=== PATIENT | male | born 1970 | race Caucasian/White ===

== ENCOUNTER 2016-05-29 19:10 | Emergency (ER) | payer BC ==
[2016-05-29 20:40] VITALS: BP 163/91
--- NOTE | 2016-05-29 21:29 | UC ---
Rectal Pain HPI - HPI Summary HPI Summary: rectal pain from a hemorrhoid x 4 days, no relief with preparation H. - History Of Current Complaint Chief Complaint: UCGI Stated Complaint: RECTAL COMPLAINT Time Seen by Provider: 05/29/16 21:28 Hx Obtained From: Patient Onset/Duration: Gradual Onset, Lasting Days, Still Present Timing: Constant Severity Initially: Moderate Severity Currently: Severe Pain Intensity: 8 Pain Scale Used: 0-10 Numeric Location Of Pain: Anal Character: Pressure Aggravating Factor(s): Bowel Movement, Sitting Associated Signs And Symptoms: Positive: External Hemorrhoid Related History: Hemorrhoids - Allergies/Home Medications Allergies/Adverse Reactions: Allergies Allergy/AdvReac Type Severity Reaction Status Date / Time Metoclopramide [From Reglan] Allergy Mild very Verified 05/29/16 20:32 agitated Sulfa Antibiotics Allergy Mild very sick Verified 05/29/16 20:32 Home Medications: Home Medications Pioglitazone TAB* [Actos TAB*] 30 mg PO DAILY 05/29/16 [History Confirmed ] clonazePAM TAB(*) [KlonoPIN TAB(*)] 0.5 mg PO TID PRN 05/29/16 [History Confirmed 05/29/16] PMH/Surg Hx/FS Hx/Imm Hx Endocrine History Of: Reports: Diabetes Cardiovascular History Of: Reports: Hypertension Denies: Cardiac Disorders, Pacemaker/ICD Respiratory History Of: Denies: Asthma - Surgical History Surgical History: Yes Surgery Procedure, Year, and Place: appendectomy - Family History Known Family History: Positive: Hypertension - Social History Occupation: Employed Full-time Lives: With Family Alcohol Use: Rare Substance Use Type: None Smoking Status (MU): Former Smoker Type: Cigarettes Amount Used/How Often: 1/2- 1 ppd Have You Smoked in the Last Year: Yes When Did the Patient Quit Smoking/Using Tobacco: NOVEMBER 2014 Household Exposure Type: Cigarettes Review of Systems Constitutional: Negative Skin: Negative Eyes: Negative ENT: Negative Respiratory: Negative Cardiovascular: Negative Gastrointestinal: Other - rectal pain, no bleeding Genitourinary: Negative Motor: Negative Neurovascular: Negative Musculoskeletal: Negative Neurological: Negative Psychological: Negative All Other Systems Reviewed And Are Negative: Yes Physical Exam Triage Information Reviewed: Yes Appearance: Well-Appearing, Well-Nourished, Pain Distress Vital Signs: Initial Vital Signs Temp 97.6 F 05/29/16 20:35 Pulse 118 05/29/16 20:35 Resp 20 05/29/16 20:35 BP 163/91 05/29/16 20:35 Pulse Ox 95 05/29/16 20:35 elevated pulse noted, elevated BP noted Vital Signs Reviewed: Yes Eyes: Positive: Conjunctiva Clear ENT: Positive: Normal ENT inspection Neck: Positive: Supple Respiratory: Positive: Lungs clear, Normal breath sounds, No respiratory distress Cardiovascular: Positive: RRR, No Murmur, Pulses Normal, Brisk Capillary Refill Abdomen Description: Positive: Nontender, No Organomegaly, Soft Bowel Sounds: Positive: Other: - rectal exam with nonthrombosed external hemorrhoid, no fissure or fistula Musculoskeletal: Positive: Strength Intact, ROM Intact Neurological: Positive: Alert, Muscle Tone Normal Psychological Exam: Normal Skin Exam: Normal Rectal Pain Course/Dx - Differential Dx/Diagnosis Differential Diagnosis/HQI/PQRI: Hemorrhoid(s), Perirectal Abscess, Pilonial Cyst, Rectal Fissure Provider Diagnoses: rectal pain from nonthrombosed hemorrhoid Discharge - Discharge Plan Condition: Stable Disposition: HOME Prescriptions: HYDROcodone/ACETAMIN 5-325 MG* [Duff 5-325 TAB*] 1 tab PO Q4H PRN #12 tab MDD 4 PRN Reason: Pain Hydrocortisone SUPP* [Anusol HC Supp*] 25 mg NH BID #12 supp Witch Jackie PAD* [Tucks*] 1 applic TOPICAL QID #1 jar Patient Education Materials: Hemorrhoids (ED) Forms: *Work Release Referrals: Josué Lin NP [Primary Care Provider] - Additional Instructions: Take both the miralax and the senokot (senna) and drink lots of water. Use the Tucks and the Anusol as directed. Be careful because the narcotic is very constipating. Try a donut cushion. Also try sitz baths. If no improvement or worsening return to urgent care, or go to the emergency room.
[2016-05-29] MEDS ORDERED: HYDROcodone/ACETAMIN 5-325 MG* 1 TAB PO ONE (21:49)
== END 2016-05-29 21:57 | disposition home or self-care (01) ==
LOC: UCCORT 19:10
DX: K64.4 Residual hemorrhoidal skin tags (principal); K62.89 Other specified diseases of anus and rectum; Z88.2 Allergy status to sulfonamides; Z88.8 Allergy status to other drugs, medicaments and biological substances; E11.9 Type 2 diabetes mellitus without complications; Z79.84 Long term (current) use of oral hypoglycemic drugs; Z87.891 Personal history of nicotine dependence
CPT/HCPCS: 99212; G0463

== ENCOUNTER 2016-07-16 16:35 | Emergency (ER) | payer BC ==
[2016-07-16 17:05] VITALS: BP 156/83
--- NOTE | 2016-07-16 17:09 | UC ---
Lower Extremity/Ankle HPI - HPI Summary HPI Summary: The patient comes in today for: 1. Right ankle pain: Onset: 5 days ago. Palliative/provocative: Sitting helps. Walking makes it worse. Quality: [place]: Right lateral ankle. Severity: Sittin/10, but with walking 7/10 Time: Comes and goes depending on activity. Associated symptoms: Event: No injury know, but he describes an event 5 days ago, when he was stepping off a stage. He describes himself as "tripping up a little bit." But he did not thing that he sprained his ankle at the time. Previous treatment: Ibuprofen 400 mg twice a day and this did not help. * - History of Current Complaint Stated Complaint: RIGHT ANKLE PAIN Time Seen by Provider: 07/16/16 16:57 Hx Obtained From: Patient - Allergies/Home Medications Allergies/Adverse Reactions: Allergies Allergy/AdvReac Type Severity Reaction Status Date / Time Metoclopramide [From Reglan] Allergy Mild very Verified 07/16/16 17:02 agitated Sulfa Antibiotics Allergy Mild very sick Verified 07/16/16 17:02 Home Medications: Home Medications Sitagliptin (NF) [Januvia (NF)] 1 tab DAILY 07/16/16 [History Confirmed 07/16/16 ] PMH/Surg Hx/FS Hx/Imm Hx Endocrine History Of: Reports: Diabetes, Dyslipidemia Denies: Thyroid Disease, Hyperthyroidism, Hypothyroidism Cardiovascular History Of: Reports: Hypertension Denies: Cardiac Disorders, Pacemaker/ICD, Myocardial Infarction, Congestive Heart Failure, Atrial Fibrillation, Deep Vein Thrombosis, Bleeding Disorders Respiratory History Of: Denies: COPD, Asthma, Bronchitis, Pneumonia, Pulmonary Embolism GI/ History Of: Reports: Kidney Stones Denies: Gastroesophageal Reflux, Ulcer, Gastrointestinal Bleed, Gall Bladder Disease, Diverticulitis, Renal Disease, Urosepsis Neurological History Of: Denies: TIA, CVA, Dementia, Seizures, Migraine Psychological History Of: Reports: Anxiety Denies: Depression, Bipolar Disorder, Schizophrenia, Post Traumatic Stress Disorder Cancer History Of: Denies: Lung Cancer, Colorectal Cancer, Breast Cancer, Prostate Cancer, Cervical Cancer Other History Of: Negative For: HIV, Hepatitis B, Hepatitis C, Anticoagulant Therapy - Surgical History Surgical History: Yes Surgery Procedure, Year, and Place: appendectomy - Family History Known Family History: Positive: Hypertension, Diabetes Negative: Cardiac Disease - Social History Occupation: Employed Full-time Alcohol Use: Rare Substance Use Type: None Smoking Status (MU): Former Smoker Type: Cigarettes Amount Used/How Often: 1/2- 1 ppd Have You Smoked in the Last Year: Yes When Did the Patient Quit Smoking/Using Tobacco: NOVEMBER 2014 Household Exposure Type: Cigarettes Review of Systems Constitutional: Negative Skin: Negative Eyes: Negative ENT: Negative Respiratory: Negative Cardiovascular: Negative Gastrointestinal: Negative Genitourinary: Negative Musculoskeletal: Arthralgia, Myalgia All Other Systems Reviewed And Are Negative: Yes Physical Exam Triage Information Reviewed: Yes Appearance: Well-Appearing, No Pain Distress, Well-Nourished Vital Signs Reviewed: Yes Eyes: Positive: Conjunctiva Clear. Negative: Discharge ENT: Positive: Hearing grossly normal. Negative: Pharyngeal erythema, Nasal congestion, Nasal drainage, TM bulging, TM dull, TM red, Tonsillar swelling, Tonsillar exudate Dental: Negative: Gross Decay/Caries @, Dental Fracture @ Neck: Positive: Supple, Nontender, No Lymphadenopathy. Negative: Nuchal Rigidity Respiratory: Positive: Chest non-tender, No respiratory distress, No accessory muscle use. Negative: Crackles, Wheezing Cardiovascular: Positive: RRR, No Murmur Abdomen Description: Positive: Nontender, No Organomegaly, Soft. Negative: Distended, Guarding Musculoskeletal: Positive: Strength Intact, Other: - Right ankle: NO ecchymosis. No edema. There is tenderness to palpation inferior to the right lateral malleolus. Degroot test was normal as was feeling for a depression in the Achilles tendon with slight dorsiflexion. HE walks with a limp. Neurological: Positive: Alert, Muscle Tone Normal Psychological: Positive: Age Appropriate Behavior, Consolable Skin: Negative: rashes, breakdown Diagnostics - Radiology No standard instances Xray Interpretation: No Acute Changes Radiology Interpretation Completed By: Radiologist - No acute changes--mild osteoarthritis. Lower Extremity Course/Dx - Course Course Of Treatment: Patient was told of his x-ray results and his treatment options. - Differential Dx/Diagnosis Provider Diagnoses: Osteoarthritis of the right ankle. Discharge - Discharge Plan Condition: Stable Disposition: HOME Patient Education Materials: Osteoarthritis (ED) Forms: *Work Release Referrals: Josué Lin NP [Primary Care Provider] - 1 Week (Please see your primary care provider in about a week to see how well you are doing. If you get worse, please be seen sooner.)
--- NOTE | 2016-07-16 17:33 | RAD ---
Indication: RIGHT lateral malleolus pain for one week. Comparison: None. Technique: AP, mortise, and lateral views RIGHT ankle. Report: Negative for fracture, osteochondral lesion, or malalignment. Mild osteophytosis at the talocrural joint as well as the transverse tarsal and intertarsal joints. Small Achilles tendon insertion bone spur. Mild soft tissue swelling most prominent over the lateral malleolus. IMPRESSION: Mild osteoarthritis. Negative for fracture or malalignment.
== END 2016-07-16 17:52 | disposition home or self-care (01) ==
LOC: UCCORT 16:35
DX: M19.071 Primary osteoarthritis, right ankle and foot (principal); Z88.2 Allergy status to sulfonamides; Z88.8 Allergy status to other drugs, medicaments and biological substances; Z87.891 Personal history of nicotine dependence
CPT/HCPCS: 99212; G0463

== ENCOUNTER 2017-05-03 11:45 | Emergency (ER) | payer BC ==
[2017-05-03 12:19] VITALS: BP 130/72
--- NOTE | 2017-05-03 13:12 | UC ---
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 RIGHT eye crusting/discharge since Thursday." Wears glasses, no contacts. no cold sx. eye crusted shut past 2 AMs. no pain, no trauma or FB. no change in vision except mild blurriness. - History of Current Complaint Chief Complaint: UCEye Stated Complaint: RIGHT EYE COMPLAINT Time Seen by Provider: 05/03/17 13:05 - Allergies/Home Medications Allergies/Adverse Reactions: Allergies Allergy/AdvReac Type Severity Reaction Status Date / Time Metoclopramide [From Reglan] Allergy Mild very Verified 05/03/17 12:13 agitated Sulfa Antibiotics Allergy Mild very sick Verified 05/03/17 12:13 Home Medications: Home Medications Omeprazole CAP* [Prilosec CAP* 20 MG] 1 cap DAILY 05/03/17 [History Confirmed ] PMH/Surg Hx/FS Hx/Imm Hx Previously Healthy: Yes Endocrine History: Diabetes, Dyslipidemia Cardiovascular History: Hypertension GI/ History: Gastroesophageal Reflux Other History Of: Negative For: HIV, Hepatitis B, Hepatitis C, Anticoagulant Therapy - Surgical History Surgical History: Yes Surgery Procedure, Year, and Place: appendectomy - Family History Known Family History: Positive: Hypertension, Diabetes Negative: Cardiac Disease - Social History Alcohol Use: Occasionally Substance Use Type: None Smoking Status (MU): Former Smoker Type: Cigarettes Amount Used/How Often: 1/2- 1 ppd Have You Smoked in the Last Year: Yes When Did the Patient Quit Smoking/Using Tobacco: NOVEMBER 2014 Household Exposure Type: Cigarettes - Immunization History Most Recent Influenza Vaccination: 2016 Review of Systems Constitutional: Negative Skin: Negative Eyes: Drainage, Eye Redness ENT: Negative Respiratory: Negative Cardiovascular: Negative Gastrointestinal: Negative Genitourinary: Negative Motor: Negative Neurovascular: Negative Musculoskeletal: Negative Neurological: Negative Psychological: Negative Is Patient Immunocompromised?: No All Other Systems Reviewed And Are Negative: Yes Physical Exam Triage Information Reviewed: Yes Appearance: Well-Appearing, No Pain Distress, Well-Nourished - very pleasant Vital Signs: Initial Vital Signs Temp 97.4 F 05/03/17 12:15 Pulse 82 05/03/17 12:15 Resp 16 05/03/17 12:15 BP 130/72 05/03/17 12:15 Pulse Ox 96 05/03/17 12:15 Vital Signs Reviewed: Yes Eyes: Positive: Conjunctiva Inflamed - mild erythema right, FROM, EOMI. + mild crusted d/c., Discharge ENT Exam: Normal ENT: Positive: Pharynx normal, TMs normal. Negative: Sinus tenderness Dental Exam: Normal Neck exam: Normal Neck: Positive: Supple, Nontender, No Lymphadenopathy Respiratory Exam: Normal Respiratory: Positive: Lungs clear, Normal breath sounds, No respiratory distress, No accessory muscle use Cardiovascular Exam: Normal Cardiovascular: Positive: RRR, No Murmur, Pulses Normal Psychological Exam: Normal Eye Complaint Course/Dx - Differential Dx/Diagnosis Differential Diagnosis/HQI/PQRI: Conjunctivitis, Corneal Abrasion Provider Diagnoses: conjunctivitis Discharge - Discharge Plan Condition: Stable Disposition: HOME Prescriptions: Gentamicin 0.3% OPHTH.SOLN* 1 drop BOTH EYES Q4H #1 btl Patient Education Materials: Conjunctivitis (ED) Referrals: Kierra Simpson PA [Primary Care Provider] - If Needed Additional Instructions: Cool compresses can be helpful. Follow up with your dramatic arts historian if your symptoms persist or wrosen.
== END 2017-05-03 13:18 | disposition home or self-care (01) ==
LOC: UCCORT 11:45
DX: H10.9 Unspecified conjunctivitis (principal); Z87.891 Personal history of nicotine dependence; E11.9 Type 2 diabetes mellitus without complications; E78.5 Hyperlipidemia, unspecified; I10 Essential (primary) hypertension; K21.9 Gastro-esophageal reflux disease without esophagitis; Z88.2 Allergy status to sulfonamides
CPT/HCPCS: 99212; G0463

== ENCOUNTER 2017-08-29 13:30 | Emergency (ER) | payer BC ==
--- NOTE | 2017-08-29 14:26 | RAD ---
INDICATION: 1 day of atraumatic right shoulder pain COMPARISON: None. TECHNIQUE: 4 views of the right shoulder were obtained. FINDINGS: The adequately corticated bones are in normal alignment. Joint spaces appear maintained. No fracture, dislocation or focal bony abnormality is seen. Overlying the superior lateral humeral head is a conglomeration of oblong calcium measuring 9 mm in greatest dimension. IMPRESSION: CALCIFICATION OVERLYING THE SUPERIOR LATERAL PORTION OF THE HUMERAL HEAD COULD REPRESENT CALCIFIC TENDINITIS OF THE SUPRASPINATUS TENDON OR POTENTIALLY BE A CHRONIC CALCIFIED BODY IN THE SUBDELTOID BURSA.
--- NOTE | 2017-08-29 15:20 | UC ---
Shoulder Pain HPI - HPI Summary HPI Summary: accompanied by , states started to have intense right shoulder pain this morning as he was waking up, he denies recent activity or overhead movements, denies any change in medications. States he took ibuprofen 800 about an hour ago but pain continues at 8/10. Patient denies CP, SOB or radiation of pain to other areas, pain worsens when he lets arm hanging and is alleviated when holding arm up and out. - History of Current Complaint Chief Complaint: UCUpperExtremity Stated Complaint: RIGHT SHOULDER PAIN Time Seen by Provider: 08/29/17 13:39 Hx Obtained From: Patient Onset/Duration: Sudden Onset, Lasting Hours Timing: Constant Severity Initially: Moderate Severity Currently: Severe Pain Intensity: 10 Character: Dull, Aching Aggravating Factor(s): Movement, Extension Alleviating Factor(s): Rest, Elevation Associated Signs And Symptoms: Positive: Negative - Risk Factors Non-Orthopedic Risk Factor: Negative DVT Risk Factors: Negative Septic Arthritis Risk Factor: Negative - Allergies/Home Medications Allergies/Adverse Reactions: Allergies Allergy/AdvReac Type Severity Reaction Status Date / Time Sulfa (Sulfonamide Allergy Nausea And Verified 08/29/17 13:40 Antibiotics) Vomiting metoclopramide [From Reglan] AdvReac Agitation Verified 08/29/17 13:40 Home Medications: Home Medications Ibuprofen TAB* [Motrin TAB* 800 MG] 800 mg PO Q6H 08/29/17 [History Confirmed ] Lisinopril TAB* [Prinivil TAB*] 5 mg PO DAILY 08/29/17 [History Confirmed ] traZODone TAB* [Desyrel TAB*] 100 mg PO BEDTIME 08/29/17 [History Confirmed ] PMH/Surg Hx/FS Hx/Imm Hx Previously Healthy: Yes Endocrine History: Diabetes, Dyslipidemia Cardiovascular History: Hypertension GI/ History: Gastroesophageal Reflux Other History Of: Negative For: HIV, Hepatitis B, Hepatitis C, Anticoagulant Therapy - Surgical History Surgical History: Yes Surgery Procedure, Year, and Place: appendectomy - Family History Known Family History: Positive: Hypertension, Diabetes Negative: Cardiac Disease - Social History Alcohol Use: Rare Substance Use Type: None Smoking Status (MU): Former Smoker Type: Cigarettes Amount Used/How Often: 1/2- 1 ppd Have You Smoked in the Last Year: Yes When Did the Patient Quit Smoking/Using Tobacco: NOVEMBER 2014 Household Exposure Type: Cigarettes - Immunization History Most Recent Influenza Vaccination: 2017 Review of Systems Constitutional: Negative Musculoskeletal: Arthralgia, Myalgia All Other Systems Reviewed And Are Negative: Yes Physical Exam Triage Information Reviewed: Yes Appearance: Pain Distress, Obese Vital Signs: Initial Vital Signs Temp 97 F 08/29/17 13:40 Pulse 79 08/29/17 13:40 Resp 18 08/29/17 13:40 BP 162/88 08/29/17 13:40 Pulse Ox 98 08/29/17 13:40 Vital Signs Reviewed: Yes Eyes: Positive: Conjunctiva Clear Neck: Positive: Supple, Nontender, No Lymphadenopathy Respiratory: Positive: Chest non-tender, Lungs clear, Normal breath sounds, No respiratory distress Cardiovascular: Positive: RRR, No Murmur, Pulses Normal, Brisk Capillary Refill Musculoskeletal: Positive: No Edema, ROM Limited @ - adduction and elevation of elbow Douglas positive, empty can test positive, tender supraspinatus right side upon palpation Neurological: Positive: Alert, Muscle Tone Normal Shoulder Course/Dx - Course Course Of Treatment: xray shows calcified focus on labral surface calcific tendinitis vs calcified bursa. Patient referred to ortho and PT, start prednisone and tizanidine as prescribed, d/w patient side effects of medication - Differential Dx/Diagnosis Provider Diagnoses: SHoulder tendinitis Discharge - Sign-Out/Discharge Documenting (check all that apply): Discharge - Discharge Plan Condition: Stable Disposition: HOME Prescriptions: predniSONE TAB* [Deltasone TAB*] 60 mg PO DAILY 5 Days #15 tab tiZANidine TAB* [Zanaflex TAB*] 2 mg PO BEDTIME #20 tab Patient Education Materials: Prednisone (By mouth), Tizanidine (By mouth), Calcific Tendinitis (ED), Shoulder Pain (ED) Referrals: Gregory Raya MD [Medical Doctor] - Kierra Simpson PA [Primary Care Provider] - Additional Instructions: referral to Ortho and PT. Prednisone prescribed for 5 days but limit to days necessary to control pain as it produces elevated blood sugar. Ibuprofen to be taken after prednisone course as needed for pain - Billing Disposition and Condition Condition: STABLE Disposition: HOME
[2017-08-29 15:23] VITALS: BP 152/95
== END 2017-08-29 15:45 | disposition home or self-care (01) ==
LOC: UCCORT 13:30
DX: M75.91 Shoulder lesion, unspecified, right shoulder (principal); Z88.2 Allergy status to sulfonamides; Z88.8 Allergy status to other drugs, medicaments and biological substances; Z87.891 Personal history of nicotine dependence
CPT/HCPCS: 99213; G0463

== ENCOUNTER 2019-01-03 14:35 | Emergency (ER) | payer BC ==
--- OUTSIDE RECORDS SUMMARY | 2019-01-03 14:49 | XMS REPORT | Continuity of Care Document ---
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 calorie fields with fruits and vegetables. Some examples: Calories Potassium (mg):Baked potato with skin (1 small) 130 750 Beet greens (?? cup cooked) 20 650 Yellowfin tuna (4 oz. cooked) [id number] Sweet potato with skin (1 small) 130 540 Wild Coho salmon (4 oz. cooked) 160 490 Spinach (?? cupcooked) 20 420 Banana (1) 110 420 Low-fat plain yogurt (6 oz.) 110 400 Fat-free milk (1 cup) 80 380 Cantaloupe (??) 50 370 Lentils (?? cup cooked) 120 370 Deras beans ( ?? cup cooked) 120 370 Tomato sauce (?? cup) 30 360 Avocado (?? cup) 120 360 Spinach (2 cups raw) 10 340 Shelled edamame (?? cup cooked) 100 340 [place] or nectarine (1) 60 290 [place] sprouts (?? cup cooked) 30 250 [place] (1) 70 240 Nate lettuce (2 cups raw) 10 230 Apple (1) 100 200 6. Limit alcohol: 4 pointsLimiting alcohol helps keep your pressure in check.If you drink, stop at one drink a day for women or two for men.Find this article interesting and useful? Order a copy of Safe & Easy Steps to Lower Your Blood Pressure. Nine out of 10 Americans will eventually have high blood pressure and, with it, an increased risk of stroke, heart attack, diabetes, dementia, and more. Eating the right diet, losing weight, and exercising can keep your pressure under control. And, if you do have hypertension, it can lower your pressureas much as? ?or more than??prescription drugs. This booklet, from the editors of [employer], shows you how. (48 pages)Dr. Cedillo Can Print this out for you.The information in this post first appeared in [employer] [facility] in May 2017.WHAT WORKS? If you have high blood pressure, here??s roughly how much of a drop in systolic pressure you can expect from changes in diet and from exercise.Advice ~ What It Means ~ Typical Drop in Systolic Blood Pressure: Maintain a Normal Weight ~ Lose??or don??t gain??excess weight ~ 5 points for every 10 pounds you lose. Follow a DASH Diet ~ Eat a diet: ?? rich in vegetables & fruits ?? that includes whole grains, low-fat dairy, poultry, fish, beans, nuts, & oils ?? low in sugar & red meat ~ 11 pointsCut Sodium ~ Consume no more than 2,400??milligrams a day (1,500 mg a day lowers pressure even more)~ 5 pointsBoost Potassium ~ Shoot for 3,500 to 5,000 milligrams a day, mostly from fruits and vegetables ~ 4-5 pointsExercise ~ Doat least 30 minutes of aerobic activity (like brisk walking) most days of the week ~ 5 pointsLimitAlcohol ~ Men: No more than 2 drinks a day Women: No more than 1 drink a day ~ 4 points NO GRAPEFRUITINCREASING DOSE OF METOPROLOL FROM 25 TO 50 MG AT NIGHT - PLEASE RECHECK BP IN A WEEK OR TWO AND CALL.AllNew Medication:Invokana 300 mg - 1 by mouth every day Goals 12/06/2018 - Jessenia Cedillo MD, PHDE11.9 Type 2 diabetes mellitus without complicationsMorning fasting blood sugar close to 120
[2019-01-03 15:08] VITALS: BP 149/88
--- NOTE | 2019-01-03 16:10 | UC ---
Knee Pain HPI - HPI Summary HPI Summary: 48-year-old male comes in with a chief complaint of right knee pain. About a week and a half ago the patient fell off of a stage and hyperflexed his right knee. Had pain right away. He's had some swelling. Pain is worse with movement and ambulation. The knee has not improved. No weakness or numbness. It does clinic. Denies any locking. Feels stable. - History of Current Complaint Chief Complaint: UCLowerExtremity Stated Complaint: RIGHT KNEE COMPLAINT Time Seen by Provider: 01/03/19 15:09 Pain Intensity: 1 - Allergies/Home Medications Allergies/Adverse Reactions: Allergies Allergy/AdvReac Type Severity Reaction Status Date / Time Sulfa (Sulfonamide Allergy Nausea And Verified 01/03/19 14:55 Antibiotics) Vomiting metoclopramide [From Reglan] AdvReac Agitation Verified 01/03/19 14:55 Home Medications: Home Medications Canagliflozin (NF) [Invokana (NF)] 300 mg PO BEDTIME 01/03/19 [History Confirmed 01/03/19] Candesartan Cilexetil 32 mg PO BEDTIME 01/03/19 [History Confirmed 01/03/19] Cholecalciferol TAB* [Vitamin D TAB*] 5,000 unit PO BEDTIME 01/03/19 [History Confirmed 01/03/19] Exenatide Microspheres [Bydureon] 2 mg SC WEEKLY 01/03/19 [History Confirmed ] Ibuprofen TAB* [Advil TAB*] 800 mg PO Q8H PRN 01/03/19 [History Confirmed ] Metoprolol Tartrate TAB* [Lopressor TAB*] 50 mg PO BEDTIME 01/03/19 [History Confirmed 01/03/19] Naproxen Sodium [Aleve] 440 mg PO BID PRN 01/03/19 [History Confirmed 01/03/19] PMH/Surg Hx/FS Hx/Imm Hx Previously Healthy: Yes Other History Of: Negative For: HIV, Hepatitis B, Hepatitis C, Anticoagulant Therapy - Surgical History Surgical History: Yes Surgery Procedure, Year, and Place: appendectomy - Family History Known Family History: Positive: Hypertension, Diabetes Negative: Cardiac Disease - Social History Alcohol Use: Weekly Substance Use Type: None Smoking Status (MU): Former Smoker Type: Cigarettes Amount Used/How Often: 1/2- 1 ppd Have You Smoked in the Last Year: Yes When Did the Patient Quit Smoking/Using Tobacco: NOVEMBER 2014 Household Exposure Type: Cigarettes - Immunization History Most Recent Influenza Vaccination: 2017 Review of Systems All Other Systems Reviewed And Are Negative: Yes Constitutional: Positive: Negative Skin: Positive: Negative Eyes: Positive: Negative ENT: Positive: Negative Respiratory: Positive: Negative Cardiovascular: Positive: Negative Gastrointestinal: Positive: Negative Motor: Positive: Negative Neurovascular: Positive: Negative Musculoskeletal: Positive: Other: - SEE HPI Neurological: Positive: Negative Psychological: Positive: Negative Is Patient Immunocompromised?: No Physical Exam Triage Information Reviewed: Yes Appearance: Well-Appearing, No Pain Distress, Well-Nourished Vital Signs: Initial Vital Signs Temp 98.1 F 01/03/19 15:03 Pulse 84 01/03/19 15:03 Resp 20 01/03/19 15:03 BP 149/88 01/03/19 15:03 Pulse Ox 97 01/03/19 15:03 Vital Signs Reviewed: Yes Eye Exam: Normal Eyes: Positive: Conjunctiva Clear Neck: Positive: Supple Respiratory: Positive: No respiratory distress Musculoskeletal: Positive: Strength Intact, Other: - Right knee has an effusion. He is tender to palpation on the posterior aspect. Stable to exam. Negative Tai's. Neurological: Positive: Alert Psychological: Positive: Age Appropriate Behavior Skin Exam: Normal Knee Pain Course/Dx - Course Course Of Treatment: Patient Name: GEETA MCCABE Medical Record#: [id number] Ordering Physician: Bandar Lopez MD Acct.#: [id number] : 1970 Age: 48 Sex: M Location: [facility] Exam Date: 01/03/19 1509 ADM Status: REG ER Order Information: KNEE RIGHT 4+ VWS Accession Number: [id number] CPT: 12234 HISTORY: PAIN S/P TRAUMA . COMPARISONS: None relevant available at the time of dictation. VIEWS: 4, Frontal, lateral, axial, and oblique views of the right knee FINDINGS: BONE DENSITY: Normal. BONES: There is no displaced fracture. There is a superior patellar enthesophyte. JOINTS: There is minimal patellofemoral osteophyte formation. There is no suprapatellar joint effusion or lipohemarthrosis. ALIGNMENT: There is no dislocation. SOFT TISSUES: Unremarkable. OTHER FINDINGS: None. IMPRESSION: NO ACUTE OSSEOUS INJURY. IF SYMPTOMS PERSIST, RECOMMEND REPEAT IMAGING. <Electronically signed by Chris Sofia MD in OV> 01/03/19 7784 I discussed the x-rays with the patient. Plan is ice anti-inflammatories can use a neoprene brace as needed days, follow-up with sports medicine or orthopedics. - Differential Dx/Diagnosis Provider Diagnosis: Right knee pain, Effusion, right knee Discharge - Sign-Out/Discharge Documenting (check all that apply): Post-Discharge Follow Up All imaging exams completed and their final reports reviewed: Yes - Discharge Plan Condition: Stable Disposition: HOME Patient Education Materials: Swollen Knee Joint (ED), Knee Pain (ED) Referrals: Jessenia Cedillo MD [Primary Care Provider] - [facility] [Provider Group] Gregory Raya MD [Medical Doctor] - Additional Instructions: FOLLOW UP WITH SPORTS MEDICINE OR ORTHOPEDICS, DR RAYA. GET REEVALUATED SOONER IF WORSE OR ANY QUESTIONS OR CONCERNS. - Billing Disposition and Condition Condition: STABLE Disposition: Home
== END 2019-01-03 16:15 | disposition home or self-care (01) ==
LOC: UCCORT 14:35
DX: M25.561 Pain in right knee (principal); M25.461 Effusion, right knee; Z88.2 Allergy status to sulfonamides; Z88.8 Allergy status to other drugs, medicaments and biological substances; Z87.891 Personal history of nicotine dependence
CPT/HCPCS: 99212; G0463